=== PATIENT | male | born 1965 | race Caucasian/White ===

== ENCOUNTER 2017-01-11 17:19 | Outpatient (CLI) | payer BC ==
--- NOTE | 2017-01-11 18:11 | DIAGNOSTIC IMAGING REPORT ---
PROCEDURE: XR WRIST MIN 3 VIEWS - LEFT INDICATION: PAIN TECHNIQUE: Four views COMPARISON: None FINDINGS: Bones, joint spaces and soft tissues are normal. IMPRESSION: 1. Negative left wrist.
== END 2017-01-11 23:00 ==
LOC: XR SRH 17:19
DX: M25.532 Pain in left wrist (principal)